=== PATIENT | female | born 1985 | race Caucasian/White ===

== ENCOUNTER 2021-01-16 11:39 | Observation (INO) | payer BC ==
[~2021-01-16] VITALS: Ht 162.6 cm; Wt 80.3 kg
[2021-01-16 13:10] LABS: APPEARANCE,URINE CLOUDY (CLEAR); BILIRUBIN,URINE NEGATIVE (NEGATIVE); COLOR,URINE YELLOW (YELLOW); GLUCOSE, URINE (UA) NEGATIVE (NEGATIVE); KETONES,URINE NEGATIVE (NEGATIVE); LEUKOCYTE ESTERASE ,URINE LARGE (NEGATIVE); NITRATE,URINE NEGATIVE (NEGATIVE); OCCULT BLOOD,URINE TRACE-LYSED (NEGATIVE); PH,URINE 6.5 (5.0-8.0); PROTEIN,URINE NEGATIVE (NEGATIVE); UROBILINOGEN,URINE 0.2 mg/dL (0.2-1.0)
[2021-01-16 13:49] LABS: BACTERIA,URINE Many /HPF (None Seen); RBC,URINE 0-1 /HPF (0-1); SQUAMOUS EPITHELIAL CELL,UR Moderate /HPF (0-2); WBC,URINE 51-100 /HPF (0-1)
== END 2021-01-16 14:52 | disposition home or self-care (01) ==
LOC: LDH 11:39
PROVIDERS: ADMIT Specialist; ATTEND Specialist
DX: O36.8130 Decreased fetal movements, third trimester, not applicable or unspecified (principal); Z3A.34 34 weeks gestation of pregnancy
CPT/HCPCS: 59025; 76819; 81001; 87088; G0378 ×3

== ENCOUNTER 2021-02-02 11:14 | Observation (INO) | payer BC ==
[~2021-02-02] VITALS: Ht 162.6 cm; Wt 80.3 kg
[2021-02-02] MEDS ORDERED: LACTATED RINGERS 1000ML IV SCH (11:30)
[2021-02-02 11:57] LABS: APPEARANCE,URINE Cloudy (CLEAR); BILIRUBIN,URINE Negative (NEGATIVE); COLOR,URINE Yellow (YELLOW); GLUCOSE, URINE (UA) Negative (NEGATIVE); KETONES,URINE Negative (NEGATIVE); LEUKOCYTE ESTERASE ,URINE Large (NEGATIVE); NITRATE,URINE Negative (NEGATIVE); OCCULT BLOOD,URINE Negative (NEGATIVE); PH,URINE 6.5 (5.0-8.0); PROTEIN,URINE Negative (NEGATIVE); UROBILINOGEN,URINE 0.2 mg/dL (0.2-1.0)
[2021-02-02 12:05] LABS: BACTERIA,URINE Moderate /HPF (None Seen); RBC,URINE 0-1 /HPF (0-1); SQUAMOUS EPITHELIAL CELL,UR Moderate /HPF (0-2)
[2021-02-02 12:23] LABS: BASOPHILS % (AUTO) 0.1 % (0.0-5.0); EOSINOPHILS % (AUTO) 0.4 % (0.0-8.0); HEMATOCRIT 32.9 % (36-48); LYMPHOCYTES % (AUTO) 16.6 % (21.0-51.0); MEAN CORPUSCULAR HGB CONC 33.1 g/dL (32.0-36.0); MEAN CORPUSCULAR VOLUME 93.5 fL (79-99); MONOCYTES % (AUTO) 6.7 % (3.0-13.0); NEUTROPHILS % (AUTO) 75.9 % (40.0-77.0); PLATELET COUNT (AUTO) 241 K/uL (130-400); RED BLOOD CELL COUNT(AUTO) 3.52 MIL/uL (4.00-5.50); RED CELL DISTRIBUTION WIDTH 14.1 % (11.0-15.5); WHITE BLOOD COUNT (AUTO) 9.9 K/uL (4.8-10.8)
[2021-02-02 12:33] LABS: INR 0.93 (0.85-1.15); PROTHROMBIN TIME 10.2 SEC (9.6-11.6)
[2021-02-02 12:34] LABS: PARTIAL THROMBOPLASTIN TIME 22.9 SEC (26.3-35.5)
[2021-02-02 12:36] LABS: ALBUMIN 2.8 g/dL (3.5-5.0); BILIRUBIN,TOTAL 0.3 mg/dL (0.2-1.0); CREATININE 0.9 mg/dL (0.5-1.5); POTASSIUM 3.8 mmol/L (3.5-5.1); TOTAL PROTEIN, SERUM 7.6 g/dL (6.0-8.3); URIC ACID 6.3 mg/dL (2.6-7.2)
[2021-02-02] MEDS: LACTATED RINGERS 1000ML 1,000 ML IV PRN ×2 (13:24→21:04)
[2021-02-03] MEDS: LACTATED RINGERS 1000ML 1,000 ML IV PRN ×2 (02:56→06:58)
[2021-02-03 06:21] LABS: HEMATOCRIT 31.1 % (36-48); MEAN CORPUSCULAR HEMOGLOBIN 30.9 pg (27.0-33.0); MEAN CORPUSCULAR HGB CONC 33.1 g/dL (32.0-36.0); MEAN CORPUSCULAR VOLUME 93.4 fL (79-99); RED BLOOD CELL COUNT(AUTO) 3.33 MIL/uL (4.00-5.50); WHITE BLOOD COUNT (AUTO) 9.1 K/uL (4.8-10.8)
== END 2021-02-03 08:21 | disposition home or self-care (01) ==
LOC: LDH 11:14
PROVIDERS: ADMIT Specialist; ATTEND Specialist
DX: O16.3 Unspecified maternal hypertension, third trimester (principal); Z3A.37 37 weeks gestation of pregnancy
CPT/HCPCS: 36415 ×2; 59025; 76819; 80053; 81001; 84550; 85025; 85027; 85384; 85610; 85730; 87088; 96360; 96361 ×4; G0378 ×21; J7120 ×4

== ENCOUNTER 2024-03-21 18:46 | Emergency (ER) | payer BC ==
[~2024-03-21] VITALS: Ht 162.6 cm; Wt 70.3 kg
[~2024-03-21 18:46] MED LIST: ESOM20CA31 PO; PREN-67 PO
[2024-03-21] MEDS: BENZONATATE 100 MG CAPSULE PO ONE (19:36)
[2024-03-21 19:39] LABS: INFLUENZA TYPE A Negative For Type A (NEGATIVE); INFLUENZA TYPE B Negative For Type B (NEGATIVE)
[2024-03-21 19:50] LABS: SARS-CoV-2, RNA, NAAT NEGATIVE SARS CoV-2 (NEGATIVE)
[2024-03-21] MEDS ORDERED: BENZ-39 PO (20:20)
[2024-03-21 20:26] VITALS: BP 121/63; PULSE 82; RESP 18; O2SAT 98
== END 2024-03-21 20:25 | disposition home or self-care (01) ==
LOC: EDH 18:46
DX: R05.3 Chronic cough (principal); R09.81 Nasal congestion; Z20.822 Contact with and (suspected) exposure to COVID-19; Z79.899 Other long term (current) drug therapy; Z98.890 Other specified postprocedural states
CPT/HCPCS: 36415; 71045; 81025; 87635; 87804

== ENCOUNTER 2024-09-20 13:39 | Emergency (ER) | payer BC ==
[~2024-09-20] VITALS: Ht 157.5 cm; Wt 72.1 kg
[~2024-09-20 13:39] MED LIST changes: +BENZ-39 PO
[2024-09-20 14:28] LABS: BASOPHILS # (AUTO) 0.02 K/uL (0.00-0.20); BASOPHILS % (AUTO) 0.3 % (0.0-5.0); EOSINOPHILS # (AUTO) 0.22 K/uL (0.00-0.70); EOSINOPHILS % (AUTO) 2.8 % (0.0-8.0); HEMATOCRIT 41.6 % (36-48); IMMATURE GRANULOCYTE ABSOLUTE 0.02 K/uL (0-1); LYMPHOCYTES % (AUTO) 25.7 % (21.0-51.0); MEAN CORPUSCULAR HEMOGLOBIN 30.2 pg (27.0-33.0); MEAN CORPUSCULAR HGB CONC 33.4 g/dL (32.0-36.0); MEAN CORPUSCULAR VOLUME 90.2 fL (79-99); MONOCYTES # (AUTO) 0.4 K/uL (0.1-1.0); MONOCYTES % (AUTO) 4.8 % (3.0-13.0); NEUTROPHILS # (AUTO) 5.2 K/uL (1.8-7.7); NEUTROPHILS % (AUTO) 66.1 % (40.0-77.0); PLATELET COUNT (AUTO) 275 K/uL (130-400); RED BLOOD CELL COUNT(AUTO) 4.61 MIL/uL (4.00-5.50); RED CELL DISTRIBUTION WIDTH 12.1 % (11.0-15.5); WHITE BLOOD COUNT (AUTO) 7.9 K/uL (4.8-10.8)
[2024-09-20 14:50] LABS: INR <= 0.93 (0.85-1.15); PROTHROMBIN TIME 10.5 SEC (9.6-11.6)
[2024-09-20 14:51] LABS: PARTIAL THROMBOPLASTIN TIME 25.2 SEC (26.3-35.5)
--- NOTE | 2024-09-20 14:51 | HMCIMG ---
INDICATION: Shortness of breath TECHNIQUE: CHEST 1VW COMPARISON: 03/21/2024 FINDINGS/IMPRESSION: No acute consolidation or pleural effusion. Cardiac silhouette is within normal limits. Mild degenerative changes of the spine. The visualized upper abdomen appears unremarkable.
[2024-09-20 14:52] LABS: CREATININE 1.1 mg/dL (0.5-1.0); POTASSIUM 3.7 mmol/L (3.5-5.1)
--- NOTE | 2024-09-20 15:24 | EKG ---
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
--- NOTE | 2024-09-20 17:17 | ERN ---
ED Note History of Present Illness Stated Complaint: CP Chief Complaint: Chest Pain Time Seen by MD: 16:49 Time Seen by Midlevel: 16:49 Dictation: The patient Is a 39-year-old female with no past medical history who presents to the emergency department with complaints of chest pain onset 1:00 p.m. on and off associated with nausea and nonbloody vomiting onset 1:00 p.m.. Patient reports she was eating and then a started coughing. Reports hiccups. Denies any abdominal pain, diarrhea constipation, fevers. Patient reports that she has been battling with gastritis Allergies: Coded Allergies: No Known Drug Allergies (Unverified Allergy, Unknown, 01/16/21) Home Meds Active Scripts Ondansetron (Ondansetron Odt) 4 Mg Tab.rapdis, 4 MG PO Q6HPRN PRN for nausea, #16 TAB 0 Refills Prov:ANTONIO ONOFRE [facility] 09/20/24 Pantoprazole Sodium (Protonix) 20 Mg Tablet.dr, 1 TAB PO DAILY for 30 Days, #30 TAB 0 Refills Prov:ANTONIO ONOFRE [facility] 09/20/24 Benzonatate (Tessalon Perles) 100 Mg Cap, 100 MG PO TID for cough, #30 CAP 0 Refills Prov:KAILEE ONOFRE MD 03/21/24 Reported Medications Pnv No.118/Iron Fumarate/FA ( 19 Chewable Tablet) 1 Each Tab.chew, 1 E ACH PO AD, TAB.CHEW 02/16/21 Esomeprazole Magnesium (Nexium) 20 Mg Capsule.dr, 20 MG PO AD PRN for GI UPSET /UPSET STOMACH, CAP 02/16/21 Past Medical History Past Medical History: No Pertinent History Surgical History: None RN Note Reviewed/Agreed w/PFSH: Yes Review of System Dictation Constitutional: Negative for fever,chills, and weight loss Eyes: Negative for injury, pain,redness, and discharge ENT: Negative for injury,pain or swelling Cardiovascular: Negative for, palpitations, and edema positive for chest pain Respiratory: Negative for shortness of breath, , and wheezing, positive for cough Abdomen/GI: Negative for abdominal pain, diarrhea, and constipation positive for nausea and vomiting Back: Negative for injury and pain : Negative for injury, bleeding and discharge MS/Extremity: Negative for injury and deformity Skin: Negative for rash, and discoloration Neuro: Negative for headache, weakness, numbness, tingling, and seizure Psych: Negative for suicide ideation, homicidal ideation, and hallucinations Initial Vital Sign VS Vital Signs Date Time Temp Pulse Resp B/P (MAP) Pulse Ox O2 Delivery O2 Flow Rate FiO2 09/20/24 13:44 98.4 129 18 150/97 96 Room Air 0 09/20/24 13:47 21 Physical Exam Dictation Vital Signs reviewed General Appearance: Alert, oriented x 3, no acute distress, well developed, nourished. Head and Face: non-traumatic. Eyes: PERRL, pink conjunctivas, eyelid no trauma, anterior chamber with arcus senilis. Ears: Pinnas intact and no signs of trauma or erythema ear canals clear and no discharge TM no erythema Nose: No discharge, no bleeding. Oropharynx: Mouth normal, tongue pink. pharynx clear,no erythema, tonsils no exudates, no abscesses noted, mucous membrane moist Neck: Supple, non-tender, no thyromegaly, no masses, no JVD, no bruits Breast:Deferred Chest:No tenderness, no crepitus, no paradoxical movement, no retractions Lungs:Clear, well-ventilated, symmetric, no rales, no wheezing, no rhonchi, no stridor, good breath sounds bilaterally Heart: Regular rate, regular rhythm, no murmur, no gallops Vascular: no peripheral edema, Abdomen: Soft, positive bowel sounds, nondistended, no guarding, nontender, no rebound, no masses no hepatomegaly, no splenomegaly, no Strauss's sign, no hernias. Rectal: Deferred Genital: Deferred Neurological: Normal speech, motor function intact, sensory function intact Musculoskeletal: Neck nontender, full range of motion, back nontender, full range of motion, Extremities: nontender, full range of motion Skin: Color pink, dry, no turgor, no rash, no lacerations, no abrasions, no contusions. Lymphatic: Deferred Results (Laboratory/Radiology) Laboratory/Radiology Laboratory Tests Test 09/20/24 14:17 09/20/24 18:39 White Blood Count 7.9 K/uL (4.8-10.8) Red Blood Count 4.61 MIL/uL (4.00-5.50) Hemoglobin 13.9 g/dL (12.0-16.0) Hematocrit 41.6 % (36-48) Mean Corpuscular Volume 90.2 fL (79-99) Mean Corpuscular Hemoglobin 30.2 pg (27.0-33.0) Mean Corpuscular Hemoglobin Concent 33.4 g/dL (32.0-36.0) Red Cell Distribution Width 12.1 % (11.0-15.5) Platelet Count 275 K/uL (130-400) Mean Platelet Volume 9.7 fL (7.5-10.5) Immature Granulocyte % (Auto) 0.3 % (0-1) Neutrophils (%) (Auto) 66.1 % (40.0-77.0) Lymphocytes (%) (Auto) 25.7 % (21.0-51.0) Monocytes (%) (Auto) 4.8 % (3.0-13.0) Eosinophils (%) (Auto) 2.8 % (0.0-8.0) Basophils (%) (Auto) 0.3 % (0.0-5.0) Neutrophils # (Auto) 5.2 K/uL (1.8-7.7) Lymphocytes # (Auto) 2.0 K/uL (1.0-4.8) Monocytes # (Auto) 0.4 K/uL (0.1-1.0) Eosinophils # (Auto) 0.22 K/uL (0.00-0.70) Basophils # (Auto) 0.02 K/uL (0.00-0.20) Absolute Immature Granulocyte (auto 0.02 K/uL (0-1) Nucleated Red Blood Cells 0.0 % (0.0-0.19) Prothrombin Time 10.5 SEC (9.6-11.6) Prothromb Time International Ratio <= 0.93 (0.85-1.15) Activated Partial Thromboplast Time 25.2 SEC (26.3-35.5) L Sodium Level 143 mmol/L (136-145) Potassium Level 3.7 mmol/L (3.5-5.1) Chloride Level 104 mmol/L (101-111) Carbon Dioxide Level 32 mmol/L (21-32) Blood Urea Nitrogen 14 mg/dL (7-18) Creatinine 1.1 mg/dL (0.5-1.0) H Glomerular Filtration Rate Calc 66 mL/min (>90) Random Glucose 133 mg/dL (70-105) H Total Calcium 9.0 mg/dL (8.5-10.1) Total Bilirubin 0.4 mg/dL (0.2-1.0) Direct Bilirubin 0.1 mg/dL (0.0-0.3) Aspartate Amino Transf (AST/SGOT) 21 U/L (10-37) Alanine Aminotransferase (ALT/SGPT) 24 U/L (12-78) Alkaline Phosphatase 121 U/L (50-136) Troponin I High Sensitivity < 4 ng/L (4-50) L Total Protein 7.7 g/dL (6.0-8.3) Albumin 4.1 g/dL (3.5-5.0) Lipase 23 U/L (16-77) Serum Test, Qualitative NEGATIVE (NEGATIVE) Urine Opiates Screen NEGATIVE (NEGATIVE) Urine Barbiturates Screen NEGATIVE (NEGATIVE) Urine Phencyclidine Screen NEGATIVE (NEGATIVE) Urine Amphetamines Screen NEGATIVE (NEGATIVE) Urine Benzodiazepines Screen NEGATIVE (NEGATIVE) Urine Cocaine Screen NEGATIVE (NEGATIVE) Urine Marijuana (THC) Screen NEGATIVE (NEGATIVE) REASON: Shortness of breath ORDERING PHYSICIAN: WALT ALFARO MD PROCEDURE: CXR1VW - CHEST 1VW INDICATION: Shortness of breath TECHNIQUE: CHEST 1VW COMPARISON: 03/21/2024 FINDINGS/IMPRESSION: No acute consolidation or pleural effusion. Cardiac silhouette is within normal limits. Mild degenerative changes of the spine. The visualized upper abdomen appears unremarkable. Labs Reviewed?: Yes EKG: (+) rhythm (Sinus tachycardia) EKG Comment: EKG 09/20/2024 1339 ventricular rate 116, sinus tachycardia, regular rate and rhythm, no STEMI ED Course ED Course Orders Procedure Category Date Status Time 12 Lead Ekg Tracing- EKG 09/20/24 Resulted Technical 13:40 Cbc With Differential LAB 09/20/24 Complete 13:40 Basic Metabolic Panel LAB 09/20/24 Complete 13:40 Drug Screen Urine LAB 09/20/24 Complete 13:40 Pt And Ptt LAB 09/20/24 Complete 13:40 Troponin I High LAB 09/20/24 Complete Sensitivity 13:40 Chest 1vw RAD 09/20/24 Resulted 13:40 Lipase LAB 09/20/24 Complete 17:12 Hepatic Function Panel LAB 09/20/24 Complete 17:12 0.9%Nacl 1000ml (Ns PHA 09/20/24 Complete 1000ml) 17:30 Ondansetron 4mg Inj PHA 09/20/24 Complete (Zofran 4mg Inj) 17:30 Lidocaine Hcl 2% PHA 09/20/24 Complete Viscous (Lidocaine Hcl 17:30 Mag/Alum/Simeth 30ml PHA 09/20/24 Complete (Maalox Plus 30ml) 17:30 Pantoprazole 40mg Inj PHA 09/20/24 Complete (Protonix 40mg Inj 17:30 Dicyclomine Hcl PHA 09/20/24 Complete (Bentyl 10mg/5ml 17:30 Testing, LAB 09/20/24 Complete Serum Hcg 17:12 Metoclopramide 10 PHA 09/20/24 Complete Mg/2 Ml Vial (Reglan 1 19:00 Current Medications Medications (Trade) Dose Ordered Sig/Haley Route PRN Reason Start Time Stop Time Status Last Admin Dose Admin Al Hydroxide/Mg Hydroxide (MAALox PLUS 30ML) 30 ml ONCE ONCE PO 09/20/24 17:30 09/20/24 17:31 DC 09/20/24 17:42 Dicyclomine HCl (Bentyl 10mg/5ml Syrup) 10 mg ONCE ONCE PO 09/20/24 17:30 09/20/24 17:31 DC 09/20/24 17:42 Lidocaine HCl (Lidocaine HCl 2% Viscous) 10 ml ONCE ONCE PO 09/20/24 17:30 09/20/24 17:31 DC 09/20/24 17:42 Metoclopramide HCl (regLAN 10MG IV) 10 mg ONCE ONCE IVP 09/20/24 19:00 09/20/24 19:01 DC Ondansetron HCl (zoFRAN 4MG INJ) 4 mg ONCE ONCE IVP 09/20/24 17:30 09/20/24 17:31 DC 09/20/24 17:42 Pantoprazole Sodium (PROTonix 40MG INJ) 40 mg ONCE ONCE IVP 09/20/24 17:30 09/20/24 17:31 DC 09/20/24 17:42 Sodium Chloride 1,000 ml @ 0 mls/hr ONCE ONCE IV 09/20/24 17:30 09/20/24 17:31 DC 09/20/24 17:42 Vital Signs Date Time Temp Pulse Resp B/P (MAP) Pulse Ox O2 Delivery O2 Flow Rate FiO2 09/20/24 17:31 98.2 108 16 135/87 98 Room Air* 0 09/20/24 13:47 98.4 109 18 150/97 99 Room Air* 0 09/20/24 13:44 98.4 129 18 150/97 96 Room Air 0 HEART Score Response (Comments) Value History: Low suspicion (0) 0 EKG: Normal 0 Age: < 45yrs (0) 0 Risk Factors: No known risk factors (0) 0 Initial Troponin: Normal limit (0) 0 HEART Score Risk: Low Risk for MACE (1-3) Total 0 Medical Decision Making MDM The patient Is a 39-year-old female with no past medical history who presents to the emergency department with complaints of chest pain onset 1:00 p.m. on and off associated with nausea and nonbloody vomiting onset 1:00 p.m.. Patient reports she was eating and then a started coughing. Reports hiccups. Denies any abdominal pain, diarrhea constipation, fevers. Patient reports that she has been battling with gastritis CBC showed no leukocytosis, no anemia, chemistry showed GFR of 66, negative lipase, normal liver enzymes, no electrolyte imbalance, removal chest x-ray. EKG with some tachycardia. Patient given fluids with improvement. Patient has not had an episode of vomiting. Continues with a nontender abdomen to palpation. No chest pain. No cough. Clear lung sounds. Patient tolerated po challenge with no vomiting. Patient in no acute distress, non toxic appearance. Will be discharged to follow up with PCP and gastroenterology. Patient instructed to return if symptoms worsen. Differential diagnosis: Gastritis, pneumonia, ACS, electrolyte imbalance Need for hospitalization: Patient does not meet criteria for hospitalization. There are no social concerns with this patient. DX & DISP Disposition: Discharge Departure Impression: Primary Impression: Gastritis Additional Impressions: Chest pain with low risk for cardiac etiology, Nausea and vomiting Condition: Stable Scripts Ondansetron (Ondansetron Odt) 4 Mg Tab.rapdis 4 MG PO Q6HPRN PRN for nausea, #16 TAB 0 Refills Prov: ANTONIO ONOFRE [employer] 09/20/24 Pantoprazole Sodium (Protonix) 20 Mg Tablet.dr 1 TAB PO DAILY for 30 Days, #30 TAB 0 Refills Prov: ANTONIO ONOFRE 09/20/24 Additional Instructions: Please follow up with your primary doctor in 1-2 days. If symptoms worsen pleas e return to ER. FOLLOW-UP WITH PRIMARY CARE PROVIDER IN 1 TO 2 DAYS. TAKE MEDICATIONS DIRECTED HERE IN THE EMERGENCY ROOM. OKAY TO CONTINUE HOME MEDICATIONS UNLESS OTHERWISE DISCUSSED DURING YOUR VISIT IN THE EMERGENCY ROOM TODAY. RETURN TO YOUR NEAREST EMERGENCY ROOM IF SYMPTOMS WORSEN OR IF THERE IS NO IMPROVEMENT. CALL 911 IF YOU NEED IMMEDIATE ASSISTANCE. TAKE TYLENOL OR MOTRIN [id number] NEEDED AND IF NO CONTRAINDICATIONS ARE PRESENT. INCREASE ORAL HYDRATION. A WOUND CULTURE OR URINE CULTURE WAS ORDERED HERE IN THE EMERGENCY ROOM DEPARTMENT PLEASE FOLLOW-UP WITH PRIMARY CARE PROVIDER AND ADVISE THEM TO GET REPEAT PORTS FROM OUR FACILITY. IF YOU HAD ANY DEEPAK WRAP/SPLINTS THAT WERE APPLIED HERE, PLEASE DO NOT REMOVE THEM UNTIL YOU SEE YOUR PRIMARY CARE OR SPECIALTY. Referrals: SELF,REFERRAL (PCP) Time of Disposition: 19:43 I have reviewed the case, and I agree with, Diagnosis and Plan ANTONIO ONOFRE Sep 20, 2024 17:17
[2024-09-20] MEDS: LIDOCAINE HCL 2% VISCOUS 15 ML UDCUP PO ONE (17:42)
[2024-09-20] MEDS: 0.9%NACL 1000ML 1,000 ML IV ONE (17:42)
[2024-09-20] MEDS: MAG/ALUM/SIMETH 30 ML UDCUP PO ONE (17:42)
[2024-09-20] MEDS: DICYCLOMINE HCL 10 MG/5 ML ML PO ONE (17:42)
[2024-09-20] MEDS: PANTOPrazole 40 MG/VIAL IVP ONE (17:42)
[2024-09-20] MEDS: ondanSETRON 4MG INJ IVP ONE (17:42)
[2024-09-20 18:06] LABS: ALBUMIN 4.1 g/dL (3.5-5.0); BILIRUBIN,DIRECT 0.1 mg/dL (0.0-0.3); BILIRUBIN,TOTAL 0.4 mg/dL (0.2-1.0); TOTAL PROTEIN, SERUM 7.7 g/dL (6.0-8.3)
[2024-09-20] MEDS ORDERED: ONDA-243 PO (19:44)
[2024-09-20] MEDS ORDERED: PANT20TA PO (19:44)
[2024-09-20 19:47] LABS: AMPHET/METH SCREEN,URINE NEGATIVE (NEGATIVE); BARBITURATE SCREEN, URINE NEGATIVE (NEGATIVE); BENZODIAZEPINES SCREEN,URINE NEGATIVE (NEGATIVE); CANNABINOID SCREEN,URINE NEGATIVE (NEGATIVE); COCAINE SCREEN,URINE NEGATIVE (NEGATIVE); OPIATE SCREEN,URINE NEGATIVE (NEGATIVE); PHENCYCLIDINE SCREEN,URINE NEGATIVE (NEGATIVE)
[2024-09-20] MEDS: metoCLOPRAmide 10 MG/2 ML VIAL IVP ONE (20:12)
[2024-09-20 20:30] VITALS: BP 178/65; PULSE 86; RESP 16; TEMP 98.3; O2SAT 95
== END 2024-09-20 20:43 | disposition home or self-care (01) ==
LOC: EDH 13:39
DX: R07.89 Other chest pain (principal); K29.70 Gastritis, unspecified, without bleeding; Z79.899 Other long term (current) drug therapy
CPT/HCPCS: 99284; 96374; 96375; 71045; 80076; 84484; 80048; 80305; 84703; 83690; 85025; 85610; 85730; 36415; 93005; J7030; J2405; J2470; J2765